=== PATIENT | male | born 1985 | race African-American/Black ===

== ENCOUNTER 2021-01-06 17:15 | Emergency (ER) | payer SELFPAY ==
[~2021-01-06] VITALS: Ht 187 cm; Wt 99.7 kg
[2021-01-06 17:20] VITALS: BP 116/72
--- NOTE | 2021-01-06 17:34 | ED GI ---
General Chief Complaint: Abdominal/GI Problems Stated Complaint: ABD PAIN,BLOOD IN STOOL Source of Information: Patient History of Present Illness Date Seen by Provider: Jan 06, 2021 Time Seen by Provider: 17:17 Initial Comments 35-year-old male presenting with complaints of epigastric and right-sided abdominal pain since yesterday. He also noticed looser stools with a small amount of blood. He has had increased fatigue and decreased appetite since yesterday. He states these are all similar symptoms to when he has had flareups of his Crohn's disease in the past. He does not feel this is anything severe at this point and was requesting to get started on medications. 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 He is in the area for work and will be here for at least another 7 to 10 days. He denies any fever or chills. He has had no pain with urination. He states in the past if he can catch things early taking prednisone, Flagyl, tramadol controls his symptoms. Timing/Duration: 1 Day Severity/Quality: Moderate, Cramping Location: RUQ, RLQ, Epigastric Radiation: No Radiation Activities at Onset: None Modifying Factors: Worsens With Movement, Worsens With Palpation Associated Symptoms: No Back Pain, No Chest Pain, No Diaphoresis, No Fever/Chills; Fatigue; No Headache, No Heartburn, No Nausea/Vomiting, No Rash, No Shortness of Air, No Swelling/Mass in Abdomen, No Syncope, No Weakness Allergies and Home Medications Allergies Coded Allergies: No Known Drug Allergies (Unverified , 01/06/21) Home Medications Metronidazole 500 Mg Tablet, 500 MG PO BID Prescribed by: NEERAJ JAIMES on 01/06/211819 Prednisone 20 Mg Tab, 20 MG PO DAILY Take 2 tabs(40mg)daily x 7 days,then decrease by 1/2 tab(10mg)every 4 days. Prescribed by: NEERAJ JAIMES on 01/06/211819 Tramadol HCl 50 Mg Tablet, 50 MG PO Q6H PRN for PAIN Prescribed by: NEERAJ JAIMES on 01/06/211819 Patient Home Medication List Home Medication List Reviewed: Yes Review of Systems Review of Systems Constitutional: No chills, No dizziness, No fever EENTM: No Symptoms Reported Respiratory: No Symptoms Reported Cardiovascular: No Symptoms Reported Gastrointestinal: See HPI Genitourinary: No Symptoms Reported Musculoskeletal: no symptoms reported Skin: no symptoms reported Psychiatric/Neurological: No Symptoms Reported Endocrine: No Symptoms Reported Hematologic/Lymphatic: No Symptoms Reported Past Ttvftko-Bpybrd-Yyxbou Hx Past Med/Social Hx: Reviewed Nursing Past Med/Soc Hx Patient Social History Alcohol Use: Denies Use Smoking Status: Never a Smoker 2nd Hand Smoke Exposure: No Recent Hopitalizations: No Seasonal Allergies Seasonal Allergies: No Past Medical History Surgeries: Yes (ACHILLES BILAT X 2, HYPOSPADIA X 2, LYMPH NODE IN GROIN) Orthopedic (Achilles tendon) Respiratory: No Cardiac: No Neurological: No Genitourinary: No Gastrointestinal: Yes Crohns Disease Musculoskeletal: No Endocrine: No HEENT: No Cancer: No Psychosocial: No Integumentary: No Blood Disorders: No Physical Exam Vital Signs Vital Signs - First Documented 01/06/21 17:20 Temp 36.8 Pulse 85 Resp 18 B/P (MAP) 116/72 (87) Pulse Ox 99 Capillary Refill : Height/Weight/BMI Height: '" Weight: lbs. oz. kg; BMI Method: General Appearance: WD/WN, no apparent distress HEENT: PERRL/EOMI Neck: non-tender, full range of motion, supple, normal inspection Respiratory: chest non-tender, lungs clear, normal breath sounds, no respiratory distress, no accessory muscle use Cardiovascular: normal peripheral pulses, regular rate, rhythm Gastrointestinal: normal bowel sounds, soft, no pulsatile mass; No distended, No guarding, No rebound; tenderness (Mild tenderness to palpation of the epigastric and right sided abdomen. 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, alert, normal mood/affect, oriented x 3 Skin: normal color, warm/dry Images 1 - Mild Right-sided abdominal tenderness and epigastric tenderness with palpation Progress/Results/Core Measures Results/Orders My Orders Orders - NEERAJ JAIMES MD Dexamethasone Injection (Decadron Inje (01/06/21 18:08) Ondansetron Oral Dissolve Tab (Zofran (01/06/21 18:08) Vital Signs/I&O 01/06/21 17:20 Temp 36.8 Pulse 85 Resp 18 B/P (MAP) 116/72 (87) Pulse Ox 99 Progress Progress Note : Progress Note Advised patient that his exam did not fit with bowel perforation or severe colitis but without labs or CT I could not say for sure. Patient stated that he felt comfortable with his body and his symptoms to say that started medication would take care of this and he felt that labs and imaging were not necessary currently. He agreed that if he was not improving or had sudden worsening symptoms that he would seek medical care for further testing. Well prescribed Flagyl, prednisone taper, tramadol. Given Decadron IM shot as well as a single Zofran ODT to try and help with his decreased appetite. Prescription sent to the local [facility]. Patient states that he is staying in [facility] and can follow up with hospital there if having more problems. Departure Impression Primary Impression: Bloody diarrhea Additional Impressions: Epigastric abdominal pain Right sided abdominal pain Crohn's disease of colon with rectal bleeding Disposition: HOME, SELF-CARE Condition: Stable Departure-Patient Inst. Decision time for Depature: 18:10 Referrals: NO,LOCAL PHYSICIAN (PCP/Family) Primary Care Physician Patient Instructions: Bloody Stools, Adult ED, Abdominal Pain, Adult ED, Crohn's Disease Diet, Crohn's Disease (DC) Add. Discharge Instructions: Seek medical care if you have worsening symptoms or more problems Follow up with your Gastroenterology (GI) specialist as soon as possible when you get back to [place] Take the steroid, antibiotic as scheduled and pain medicine if needed to help with your symptoms. All discharge instructions reviewed with patient and/or family. Voiced understanding. Scripts Tramadol HCl (Tramadol HCl) 50 Mg Tablet 50 MG PO Q6H PRN for PAIN for 5 Days, #20 TAB 0 Refills Prov: NEERAJ JAIMES MD 01/06/21 Prednisone (Prednisone) 20 Mg Tab 20 MG PO DAILY for 19 Days, #26 TAB 0 Refills Take 2 tabs(40mg)daily x 7 days,then decrease by 1/2 tab(10mg)every 4 days. Prov: NEERAJ JAIMES MD 01/06/21 Metronidazole (Metronidazole) 500 Mg Tablet 500 MG PO BID for 10 Days, #20 TAB 0 Refills Prov: NEERAJ JAIMES MD 01/06/21 Work/School Note: Work Release Form Date Seen in the Emergency Department: Jan 06, 2021 Return to Work: Jan 08, 2021 Restrictions: No Restrictions NEERAJ JAIMES MD Jan 06, 2021 17:34
[2021-01-06] MEDS ORDERED: ONDANSETRON 4 MG (ZOFRAN) ORAL DISSOLVE TAB PO STA (18:08)
[2021-01-06] MEDS ORDERED: PRD20T PO (18:20)
[2021-01-06] MEDS ORDERED: TRM50T PO (18:20)
[2021-01-06] MEDS ORDERED: METR-145 PO (18:20)
== END 2021-01-06 18:25 | disposition home or self-care (01) ==
LOC: ER FS 17:16
DX: K50.10 Crohn's disease of large intestine without complications (principal); Z79.52 Long term (current) use of systemic steroids
CPT/HCPCS: 99284